=== PATIENT | male | born 1970 | race Caucasian/White ===

== ENCOUNTER 2016-12-20 16:21 | Emergency (ER) | payer SELFPAY ==
[~2016-12-20] VITALS: Ht 177.8 cm; Wt 73.9 kg
[2016-12-20 16:37] VITALS: BP 146/96; PULSE 67; RESP 16; TEMP 97.5; O2SAT 97
[2016-12-20] MEDS ORDERED: IBUP1TAB7 PO (17:35)
--- NOTE | 2016-12-20 17:39 | PD ---
HPI Chief Complaint: Laceration/Skin Injury Time Seen by Provider: 17:30 Travel History International Travel<30 days: No Contact w/Intl Traveler<30days: No Traveled to known affect area: No History of Present Illness HPI 46-year-old male presents to emergency Department with complaint of a laceration to his left wrist from a razor blade that occurred today. He was prepping an area to paint and he pushed to heart and the razor blade slipped and hit him in the wrist. Reports being up-to-date on his tetanus vaccination. Denies paresthesias, loss of sensation, decreased range of motion, decreased strength to the affected extremity. Has applied pressure and bandage to control bleeding. Bleeding controlled. Has not taken any medications to alleviate his symptoms. Symptoms are mild in severity. No known aggravating or relieving factors. Denies suicidal attempt or ideation. Has no other medical complaints. No known allergies. No other modifying factors or associated signs and symptoms. PFSH Social History Alcohol Use: No Tobacco Use: Yes (1/2PPD) Substance Use: No Allergies-Medications (Allergen,Severity, Reaction): Coded Allergies: No Known Allergies (Verified Allergy, Unknown, 12/20/16) Reported Meds & Prescriptions Reported Meds & Active Scripts Active Ibuprofen 800 Mg Tab 800 Mg PO Q6HR PRN Review of Systems Except as stated in HPI: all other systems reviewed are Neg Physical Exam Narrative GENERAL: Well-nourished, well-developed male patient, in no acute distress SKIN: Warm and dry. Palmar aspect of mid left wrist with approximately 1.5 cm laceration; bleeding controlled; without erythema, edema. 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 HEAD: Atraumatic. Normocephalic. EYES: Pupils equal and round. No scleral icterus. No injection or drainage. ENT: Mucosa pink and moist. Airway patent. NECK: Trachea midline. CARDIOVASCULAR: Regular rate. RESPIRATORY: No accessory muscle use. GASTROINTESTINAL: Flat. MUSCULOSKELETAL: No obvious deformities. No clubbing. No cyanosis. No edema. NEUROLOGICAL: Awake and alert. Oriented 3. No obvious cranial nerve deficits. Motor grossly within normal limits. Normal speech. PSYCHIATRIC: Appropriate mood and affect; insight and judgment normal. Data Data Last Documented VS Vital Signs Date Time Temp Pulse Resp B/P (MAP) Pulse Ox O2 Delivery O2 Flow Rate FiO2 11/6/17 16:37 97.5 67 16 146/96 (113) 97 Orders Orders Lidocaine 1% Inj (50 Ml) (Xylocaine 1% I (12/20/16 17:45) Ed Discharge Order (12/20/16 18:07) Wound Care (12/20/16 18:07) MDM Medical Decision Making Medical Screen Exam Complete: Yes Emergency Medical Condition: Yes Medical Record Reviewed: Yes Differential Diagnosis Laceration, contusion, abrasion Narrative Course 46-year-old male with a laceration to the palmar aspect of his left wrist. Up- to-date on tetanus vaccination. See my procedure note for laceration repair. Instructed patient to return to the emergency department or follow-up with primary care provider in 7-10 days for suture removal. Ibuprofen prescribed for home. Instructed patient to follow up with primary care provider. Patient verbalizes understanding and agreement with treatment plan. Patient is medically cleared and stable for discharge. Discussed reasons to return to the emergency department. Patient agrees with treatment plan. The patients vital signs are stable and the patient is stable for outpatient follow-up and treatment. Patient discharged home, stable and in no acute distress. Procedures Procedure Narrative LACERATION LOCATION: Palmar aspect of left wrist LENGTH: 1.5 cm NUMBER OF STITCHES/DARLYN: 3 simple interrupted sutures REPAIR: The area of the laceration was prepped with Betadine and sterilely draped. The laceration was infiltrated with 1% lidocaine. The wound was copiously irrigated and explored without evidence of foreign body, tendon injury or neurovascular injury. The wound was closed using 4-0 Prolene. This was a single layer repair. A sterile dressing was applied. The patient was advised to keep the dressing clean and dry. Patient tolerated the procedure well. Diagnosis Primary Impression: Laceration of left wrist Qualified Codes: S61.512A - Laceration without foreign body of left wrist, initial encounter Referrals: Primary Care Physician Patient Instructions: Care For Your Stitches (ED), General Instructions, Laceration (ED) Additional Instructions: Keep area clean and dry Keep area covered Limit left wrist activity to decrease risk of sutures coming undone Ibuprofen or Tylenol as directed and as needed for pain and inflammation Ice pack to area as needed to decrease pain Return to the emergency department or follow-up with primary care provider and in 7-10 days for suture removal Follow up with primary care provider within 2-4 days Return to the emergency department immediately with worsening of symptoms, particularly if reddened streaks up or down the affected extremity from the suture site, fever, numbness/tingling in the affected extremity, loss of sensation in the affected extremity, severe swelling of the affected Med/Other Pt SpecificInfo: Prescription(s) given Scripts Ibuprofen (Ibuprofen) 800 Mg Tab 800 MG PO Q6HR Y for PAIN, #30 TAB 0 Refills Prov: Meaghan Garcia 12/20/16 Disposition: 01 DISCHARGE HOME Condition: Stable Meaghan Garcia Dec 20, 2016 17:39
[2016-12-20] MEDS ORDERED: LIDOCAINE HCL 1% 50 ML VIAL INFIL ONE (17:45)
== END 2016-12-20 18:37 | disposition home or self-care (01) ==
LOC: PHEFT 16:21
DX: S61.512A Laceration without foreign body of left wrist, initial encounter (principal); F17.210 Nicotine dependence, cigarettes, uncomplicated; W26.8XXA Contact with other sharp object(s), not elsewhere classified, initial encounter; Y93.89 Activity, other specified; Y92.9 Unspecified place or not applicable
CPT/HCPCS: 12001

== ENCOUNTER 2016-12-31 21:51 | Emergency (ER) | payer SELFPAY ==
[~2016-12-31] VITALS: Ht 175.3 cm; Wt 74.3 kg
[~2016-12-31 21:51] MED LIST: IBUP1TAB7 PO
[2016-12-31 21:55] VITALS: BP 148/88; PULSE 76; RESP 16; TEMP 98.4; O2SAT 97
--- NOTE | 2016-12-31 22:45 | PD ---
HPI Chief Complaint: Wound/Suture/Staple Re-Check Time Seen by Provider: 22:43 Travel History International Travel<30 days: No Contact w/Intl Traveler<30days: No Traveled to known affect area: No History of Present Illness HPI This patient came for suture removal. He had stitches placed right over his left wrist flexion crease. He is not having any problem with it. No discharge or pain PFSH Past Medical History Diminished Hearing: No ?: Not Social History Alcohol Use: No Tobacco Use: Yes (1/2PPD) Substance Use: No Allergies-Medications (Allergen,Severity, Reaction): Coded Allergies: No Known Allergies (Verified Allergy, Unknown, 12/20/16) Reported Meds & Prescriptions Reported Meds & Active Scripts Active Ibuprofen 800 Mg Tab 800 Mg PO Q6HR PRN Review of Systems General / Constitutional: No: Fever HENT: No: Headaches Cardiovascular: No: Chest Pain or Discomfort Physical Exam Narrative Psych: Normal mood and affect. Normal insight and judgment. SKIN: Focused skin assessment reveals no rash or ulcers. Skin is warm and dry. Palpation shows no induration or nodules. Left wrist: Laceration is reviewed. No sign of infection. However doesn't really appear healed well and I think it's too early to remove the stitches may because it's over a flexion crease and he uses that wrist a lot. Data Data Last Documented VS Vital Signs Date Time Temp Pulse Resp B/P (MAP) Pulse Ox O2 Delivery O2 Flow Rate FiO2 12/31/16 21:55 98.4 76 16 148/88 (108) 97 MDM Medical Decision Making Medical Screen Exam Complete: Yes Emergency Medical Condition: Yes Medical Record Reviewed: Yes Differential Diagnosis Suture removal, dehiscence, infection Narrative Course I have reviewed the patient's electronic medical record. Recommending he come back in 5-7 days for reevaluation of removing stitches but it's too early at this point. His wound will dehisce of stitches removed I feel. Diagnosis Primary Impression: Visit for wound check Additional Instructions: The patient was advised to follow up with their physician and return if they worsen Come back in 7 days for suture removal Med/Other Pt SpecificInfo: Other Disposition: 01 DISCHARGE HOME Condition: Stable Ruddy Bustillos MD Dec 31, 2016 22:45
== END 2016-12-31 22:51 | disposition home or self-care (01) ==
LOC: PHED 21:51 → PHEFT 22:51
DX: S61.512D Laceration without foreign body of left wrist, subsequent encounter (principal); X58.XXXD Exposure to other specified factors, subsequent encounter
CPT/HCPCS: 99281

== ENCOUNTER 2017-05-23 16:29 | Emergency (ER) | payer SELFPAY ==
[~2017-05-23] VITALS: Ht 175.3 cm; Wt 73.5 kg
[2017-05-23 16:35] VITALS: BP 162/97; PULSE 77; RESP 16; TEMP 97.8; O2SAT 98
[2017-05-23] MEDS ORDERED: LIDOCAINE HCL 1% 50 ML VIAL INFIL ONE (17:30)
[2017-05-23] MEDS ORDERED: LIDOCAINE HCL 1% PF 30 ML VIAL ONE (17:31)
[2017-05-23] MEDS ORDERED: BACT800T5 PO (17:47)
--- NOTE | 2017-05-23 17:53 | PD ---
HPI Chief Complaint: Skin Problem Time Seen by Provider: 17:16 Travel History International Travel<30 days: No Contact w/Intl Traveler<30days: No Traveled to known affect area: No History of Present Illness HPI 46-year-old male presents to the emergency room for evaluation of an abscess to his left thigh that started about 2 weeks ago. Patient states it started off as a small pimple. He squeezed it and a small amount of pus came out. Since then it has been expanding. He has had increasing pain. No alleviating factors. Patient states 2 days ago it started draining on its own. He denies fever, chills, nausea, vomiting. No chronic medical conditions or daily medications. Denies history of MRSA. PFSH Past Medical History Medical History: Denies Significant Hx Diminished Hearing: No Tetanus Vaccination: > 5 Years Influenza Vaccination: No Past Surgical History Surgical History: No Previous Surgery Social History Alcohol Use: No Tobacco Use: Yes (VAPER) Substance Use: No Allergies-Medications (Allergen,Severity, Reaction): Coded Allergies: No Known Allergies (Verified Allergy, Unknown, 05/23/17) Reported Meds & Prescriptions Reported Meds & Active Scripts Active Bactrim DS (Sulfamethoxazole-Trimethoprim) 800-160 Mg Tab 1 Tab PO BID Review of Systems Except as stated in HPI: all other systems reviewed are Neg Physical Exam Narrative GENERAL: Well-nourished, well-developed male in no acute distress. Afebrile. Ambulatory. SKIN: Focused skin assessment warm/dry. There is an indurated area in the left anterior thigh which measures about 6 cm in diameter. It is fluctuant with pointing and mild spontaneous drainage. There is a zone of inflammation around it but no lymphangitis. HEAD: Normocephalic. EYES: No scleral icterus. No injection or drainage. NECK: Supple, trachea midline. No JVD or lymphadenopathy. CARDIOVASCULAR: Regular rate and rhythm without murmurs, gallops, or rubs. RESPIRATORY: Breath sounds equal bilaterally. No accessory muscle use. MUSCULOSKELETAL: No cyanosis, or edema. Data Data Last Documented VS Vital Signs Date Time Temp Pulse Resp B/P (MAP) Pulse Ox O2 Delivery O2 Flow Rate FiO2 05/23/17 16:35 97.8 77 16 162/97 (118) 98 Orders Orders Lidocaine 1% Inj (50 Ml) (Xylocaine 1% I (05/23/17 17:30) Lidocaine Pf 1% Inj (Xylocaine-Mpf 1% In (05/23/17 17:31) MDM Medical Decision Making Medical Screen Exam Complete: Yes Emergency Medical Condition: Yes Medical Record Reviewed: Yes Differential Diagnosis Abscess, cellulitis, foreign body Narrative Course 46-year-old male presents to the emergency room for evaluation of an abscess to his left thigh that started 2 weeks ago. States he began to drain on its own 2 days ago. Patient denies systemic signs of infection. He is afebrile well- appearing in the emergency room. Vital signs stable. Resting comfortably. There is a large, 6 cm abscess with pointing and drainage but no lymphangitis. Abscess was drained, see procedure note for details. Patient discharged with prescription for Bactrim and told to follow-up with the primary care physician or return for worsening symptoms. He understands and agrees to plan. Diagnosis Primary Impression: Abscess of leg Referrals: Primary Care Physician Additional Instructions: Rest and drink plenty of fluids. Bactrim as directed, until gone. Take ibuprofen with food as directed, as needed for pain. Follow-up with a primary care physician. Return to the emergency room for worsening symptoms. Med/Other Pt SpecificInfo: Prescription(s) given Scripts Sulfamethoxazole-Trimethoprim (Bactrim DS) 800-160 Mg Tab 1 TAB PO BID for Infection, #20 TAB 0 Refills Prov: MakGabriela Sherine OLIVAREZ 05/23/17 Disposition: 01 DISCHARGE HOME Condition: Stable Cristel Pearce May 23, 2017 17:53
== END 2017-05-23 18:02 | disposition home or self-care (01) ==
LOC: PHEFT 16:29
DX: L02.416 Cutaneous abscess of left lower limb (principal); Z72.0 Tobacco use
CPT/HCPCS: 10060